=== PATIENT | male | born 1990 | race Caucasian/White ===

== ENCOUNTER 2017-07-18 13:34 | Emergency (ER) | payer OTHER ==
[~2017-07-18] VITALS: Ht 185.4 cm; Wt 102.1 kg
[2017-07-18 15:19] VITALS: BP 138/75
== END 2017-07-18 15:38 | disposition home or self-care (01) ==
LOC: ER 13:34
DX: S93.431A Sprain of tibiofibular ligament of right ankle, initial encounter (principal); X58.XXXA Exposure to other specified factors, initial encounter; Y93.02 Activity, running; Y92.89 Other specified places as the place of occurrence of the external cause; Y99.8 Other external cause status
CPT/HCPCS: 73610

== ENCOUNTER 2018-10-17 12:30 | Emergency (ER) | payer OTHER ==
[~2018-10-17] VITALS: Ht 188 cm; Wt 108.9 kg
[2018-10-17 12:50] VITALS: BP 141/90
[2018-10-17] MEDS ORDERED: KETOROLAC TROMETH 60MG/2ML VIAL IM ONE (15:15)
== END 2018-10-17 16:35 | disposition home or self-care (01) ==
LOC: ER 12:40
DX: S39.012A Strain of muscle, fascia and tendon of lower back, initial encounter (principal); X50.9XXA Other and unspecified overexertion or strenuous movements or postures, initial encounter; Y93.89 Activity, other specified; Y99.8 Other external cause status; Y92.89 Other specified places as the place of occurrence of the external cause
CPT/HCPCS: 72100